=== PATIENT | female | born 2000 ===

== ENCOUNTER 2022-01-20 18:40 | Inpatient (IN) ==
[2022-01-20] MEDS ORDERED: Charcoal ACTIVATED 25 GM/120 ML BTL PO ONE (18:59)
[2022-01-20 20:01] LABS: ABS Eosinophils 0.1 10^3/ul (0-0.6); ABS Lymphocytes 1.3 10^3/ul (1.0-4.8); ABS Monocytes 0.8 10^3/ul (0-0.8); ABS Neutrophils 10.2 10^3/ul (1.5-7.7); Eosinophil % 0.5 %; Hematocrit 40 % (35-47); Hemoglobin 13.2 g/dL (12.0-16.0); Lymphocyte % 10.2 %; Mean Corpuscular HGB Conc 33 g/dL (31-36); Mean Corpuscular Hemoglobin 30 pg (27-31); Mean Corpuscular Volume 91 fL (80-97); Platelet Count 293 10^3/uL (150-450); Red Blood Count 4.39 10^6 /uL (3.70-4.87); Red Cell Distribution Width 14 % (10-15); White Blood Count 12.4 10^3/uL (3.5-10.8)
[2022-01-20 20:19] LABS: Urine Bacteria 1+ (Absent); Urine Red Blood Cell Trace(0-2/hpf) (Absent); Urine Squamous Epithelial Cell Present (Absent); Urine White Blood Cell Trace(0-5/hpf) (Absent)
[2022-01-20 20:23] LABS: Urine Benzodiazepine Screen None Detected (None Detect); Urine Cannabinoids Screen Presumptive Positive (None Detect); Urine Opiates Screen None Detected (None Detect)
[2022-01-20 20:27] LABS: Urine Appearance Clear; Urine Bilirubin Negative (Negative); Urine Blood Negative (Negative); Urine Color Yellow; Urine Glucose Negative (Negative); Urine Ketones Trace (Negative); Urine Nitrite Negative (Negative); Urine Protein Negative (Negative); Urine Specific Gravity 1.008 (1.002-1.030); Urine Urobilinogen Negative (Negative)
[2022-01-20] MEDS: NS 0.9% 1000 ml BAG 1,000 ML IV ONE ×2 (20:38→21:30)
[2022-01-20 20:53] LABS: ALT 10 U/L (7-52); AST 14 U/L (13-39); Albumin 4.3 g/dL (3.2-5.2); Albumin/Globulin Ratio 1.8 (1-3); Alcohol, S 126 mg/dL (<13); Alkaline Phosphatase 38 U/L (35-149); Anion Gap 9 mmol/L (2-11); Blood Urea Nitrogen 9 mg/dL (6-24); CO2 Carbon Dioxide 22 mmol/L (22-32); Calcium 9.2 mg/dL (8.6-10.3); Chloride 107 mmol/L (101-111); Creatine Kinase 59 U/L (10-223); Globulin 2.4 g/dL (2-4); Glucose 80 mg/dL (70-100); Potassium 3.4 mmol/L (3.5-5.0); Salicylate < 2.50 mg/dL (<30); Sodium 138 mmol/L (135-145); Total Protein 6.7 g/dL (6.4-8.9)
[2022-01-20 20:56] LABS: Acetaminophen < 15 mcg/mL
[2022-01-20] MEDS ORDERED: Ondansetron 4 mg VIAL 2 MG/ML 2 ml VIAL IV ONE (22:44)
[2022-01-20] MEDS ORDERED: Ondansetron 4 mg VIAL 2 MG/ML 2 ml VIAL ONE (22:45)
[2022-01-20] MEDS ORDERED: NS 0.9% 1000 ml BAG 1,000 ML IV ONE (22:50)
[2022-01-21] MEDS ORDERED: NS 0.9% 1000 ml BAG 1,000 ML IV ONE (01:48)
[2022-01-22] MEDS: CMC:Lactase Enzyme (NF) 3,000 UNIT TAB PO PRN ×2 (13:43→21:00)
[2022-01-23 08:47] LABS: HDL Cholesterol 65.2 mg/dL
[2022-01-23] MEDS ORDERED: Al Hydrox/Mg Hydrox/Simet LIQ 30 ML UDC PO PRN (11:30)
[2022-01-23] MEDS: CMC:Lactase Enzyme (NF) 3,000 UNIT TAB PO PRN (19:49)
[2022-01-24] MEDS: Vitamin THERAPEUTIC TAB PO SCH (09:14)
[2022-01-24] MEDS: CMC:Lactase Enzyme (NF) 3,000 UNIT TAB PO PRN (09:20)
[2022-01-24] MEDS: Benzocaine (plain) Lozenge 15 MG MT PRN (13:34)
[2022-01-25] MEDS: Venlafaxine XR 75 mg PO SCH (09:54)
[2022-01-25] MEDS: Vitamin THERAPEUTIC TAB PO SCH (09:54)
[2022-01-26] MEDS: Venlafaxine XR 75 mg PO SCH (08:25)
[2022-01-26] MEDS: CMC:Lactase Enzyme (NF) 3,000 UNIT TAB PO PRN ×2 (08:25→20:23)
[2022-01-26] MEDS: Vitamin THERAPEUTIC TAB PO SCH (08:25)
[2022-01-26] MEDS: Benzocaine (plain) Lozenge 15 MG MT PRN (22:17)
[2022-01-27 09:37] VITALS: BP 105/66
[2022-01-27] MEDS: Vitamin THERAPEUTIC TAB PO SCH (10:11)
== END 2022-01-27 17:00 | disposition home or self-care (01) | DRG 885 ==
LOC: ED 18:40 → BSU 01-21 07:01
PROVIDERS: ADMIT Psychiatry & Neurology Psychiatry; ATTEND Psychiatry & Neurology Psychiatry